=== PATIENT | male | born 1960 | race African-American/Black ===

== ENCOUNTER 2019-10-04 15:05 | Observation (INO) ==
[2019-10-04] MEDS: Nitroglycerin 0.4 MG TAB.SUBL SL PRN ×3 (15:34→21:17)
[2019-10-04 15:57] LABS: Basophils # 0.1 K/mcL (0.0-0.2); Basophils % 0.8 %; Eosinophils # 0.1 K/mcL (0.0-0.6); Eosinophils % 1.5 %; Hematocrit 42.8 % (37.5-50.1); Hemoglobin 14.5 g/dL (12.9-16.9); Immature Granulocytes % 0.5 % (0-4); Lymphocytes # 1.3 K/mcL (0.6-4.6); Lymphocytes % 20.2 %; Mean Corpuscular HGB Conc 33.9 g/dL (31.6-35.5); Mean Corpuscular Hemoglobin 28.8 pg (28.0-33.3); Mean Corpuscular Volume 85.1 fL (83.0-100.0); Monocytes # 0.7 K/mcL (0.0-1.3); Monocytes % 11.5 %; Neutrophils # 4.1 K/mcL (1.6-8.9); Platelet Count 151 K/mcL (140-400); Red Blood Count 5.03 M/mcL (4.19-5.50); Red Cell Distribution Width 15.3 % (11.5-14.5); Segmented Neutrophils % 65.5 %; White Blood Count 6.2 K/mcL (4.3-11.1)
[2019-10-04 16:01] LABS: BUN/Creatinine Ratio 6 (6-26); Blood Urea Nitrogen 9 mg/dL (8-23); Calcium 9.2 mg/dL (8.6-10.3); Carbon Dioxide 27 mEq/L (23-29); Chloride 99 mEq/L (98-107); Glucose 261 mg/dL (70-105); Osmolality,Calculated 284 (280-300); Potassium 3.6 mEq/L (3.5-5.1); Sodium 133 mEq/L (136-145); eGFR For African Americans > 60 (> 60); eGFR For Non-African Americans 52 (> 60)
[2019-10-04 16:03] LABS: Troponin I < 0.03 ng/mL (< 0.04)
[2019-10-04] MEDS ORDERED: Aspirin 325 MG TABLET PO ONE (16:39)
[2019-10-04] MEDS ORDERED: Naloxone 0.4 MG/ML INJ IVP PRN (17:24)
[2019-10-04] MEDS ORDERED: D5% in Water 1,000 ML IVC PRN (17:26)
[2019-10-04] MEDS ORDERED: Dextrose Gel 15 GM/37.5 ML TUBE PO PRN ×2 (17:26)
[2019-10-04] MEDS ORDERED: *HR* Dextrose 50 % in Water (Syg) 50 ML SYRINGE IVP PRN (17:26)
[2019-10-04] MEDS ORDERED: Morphine Sulfate 2 MG/ML SYRINGE IVP ONE (17:27)
[2019-10-04] MEDS ORDERED: Acetaminophen 325 MG TABLET PO PRN (17:28)
[2019-10-04] MEDS: 0.9 % Sodium Chloride 1,000 ML IVC SCH ×2 (18:19→21:18)
[2019-10-05 03:59] LABS: Basophils % 0.9 %; Eosinophils # 0.2 K/mcL (0.0-0.6); Eosinophils % 3.4 %; Hematocrit 39.7 % (37.5-50.1); Immature Granulocytes % 0.4 % (0-4); Lymphocytes # 1.8 K/mcL (0.6-4.6); Lymphocytes % 39.4 %; Mean Corpuscular HGB Conc 32.7 g/dL (31.6-35.5); Mean Corpuscular Hemoglobin 28.3 pg (28.0-33.3); Mean Corpuscular Volume 86.3 fL (83.0-100.0); Mean Platelet Volume 10.8 fL (9.4-12.4); Monocytes # 0.7 K/mcL (0.0-1.3); Monocytes % 14.8 %; Neutrophils # 1.8 K/mcL (1.6-8.9); Platelet Count 141 K/mcL (140-400); Red Cell Distribution Width 15.1 % (11.5-14.5); Segmented Neutrophils % 41.1 %; White Blood Count 4.5 K/mcL (4.3-11.1)
[2019-10-05 04:20] LABS: BUN/Creatinine Ratio 12 (6-26); Blood Urea Nitrogen 15 mg/dL (8-23); Calcium 8.6 mg/dL (8.6-10.3); Carbon Dioxide 26 mEq/L (23-29); Chloride 104 mEq/L (98-107); Glucose 162 mg/dL (70-105); Osmolality,Calculated 284 (280-300); Sodium 135 mEq/L (136-145); eGFR For African Americans > 60 (> 60); eGFR For Non-African Americans 57 (> 60)
[2019-10-05] MEDS: Insulin LISPRO 300 UNITS/3 ML VIAL SQ SCH ×2 (08:36→12:37)
[2019-10-05] MEDS ORDERED: Saline Nasal Spray 44 ML BOTTLE NS PRN (09:30)
[2019-10-05 11:31] VITALS: BP 135/81
== END 2019-10-05 14:50 | disposition home or self-care (01) ==
LOC: 2ANU 15:05 → EMEROOARM 15:05 → 2ANU 20:00
PROVIDERS: ADMIT Internal Medicine; ATTEND Internal Medicine